=== PATIENT | female | born 1960 ===

== ENCOUNTER 2018-08-03 06:05 | Emergency (ER) | payer BC ==
[~2018-08-03] VITALS: Ht 165.1 cm; Wt 67.1 kg
[2018-08-03] MEDS ORDERED: MELO7.5 PO (06:53)
[2018-08-03] MEDS ORDERED: METPRE4DP PO (06:57)
== END 2018-08-03 07:04 | disposition home or self-care (01) ==
LOC: ER 06:05
DX: M54.42 Lumbago with sciatica, left side (principal); Z88.0 Allergy status to penicillin; Z79.1 Long term (current) use of non-steroidal anti-inflammatories (NSAID)
CPT/HCPCS: 99283

== ENCOUNTER 2019-05-06 11:37 | Inpatient (IN) | payer BC ==
[~2019-05-06 11:37] MED LIST: MELO7.5 PO; METPRE4DP PO
[2019-05-06] MEDS ORDERED: IBUP600 PO (11:45)
[2019-05-06 15:08] LABS: BASOPHILS ABSOLUTE AUTO 0.04 K/mm3 (0.00-0.23); BASOPHILS PERCENT AUTO 0 % (0-2); EOSINOPHILS ABSOLUTE AUTO 0.21 K/mm3 (0.00-0.68); EOSINOPHILS PERCENT AUTO 2 % (0-6); Hematocrit 41.8 % (33.0-51.0); Hemoglobin 13.8 g/dL (11.5-16.0); IMMATURE GRAN ABSOLUTE AUTO 0.03 K/mm3 (0.00-0.10); IMMATURE GRAN PERCENT AUTO 0 % (0-1); LYMPHOCYTES ABSOLUTE AUTO 1.52 K/mm3 (0.84-5.20); LYMPHOCYTES PERCENT AUTO 16 % (21-46); MONOCYTES ABSOLUTE AUTO 0.52 K/mm3 (0.16-1.47); MONOCYTES PERCENT AUTO 5 % (4-13); Mean Corpuscular HGB 29.7 pg (26.0-34.0); Mean Corpuscular Volume 90 fL (80-100); Mean Platelet Volume 9.3 fL (9.1-12.4); NEUTROPHILS ABSOLUTE AUTO 7.38 K/mm3 (1.96-9.15); NEUTROPHILS PERCENT AUTO 76 % (41-73); Platelet Count 239 K/mm3 (150-400); RDW Coefficient Variation 12.5 % (11.7-14.2); RDW Standard Deviation 41.1 fL (35.1-46.3); Red Blood Cell Count 4.65 M/mm3 (3.80-5.20)
[2019-05-06 15:29] LABS: Alanine Aminotransfer (ALT/SGP 25 U/L (12-78); Alk Phos 87 U/L (50-136); Anion Gap 5 mmol/L (6-16); Aspartate Aminotrans (AST/SGOT 15 U/L (12-37); Bilirubin, Total 0.8 mg/dL (0.1-1.0); Blood Urea Nitrogen 21 mg/dL (8-24); Bun/Creatinine Ratio 28.2 (12.0-20.0); CO2, Blood 29 mmol/L (21-32); Calcium, Blood 9.2 mg/dL (8.5-10.1); Chloride, Blood 107 mmol/L (98-108); Creatinine, Blood 0.75 mg/dL (0.40-1.00); Globulin, Blood 3.9 g/dL (2.2-4.0); Glomerular Filtration Rate >60 (60-); Glucose, Blood 92 mg/dL (70-99); Sodium, Blood 141 mmol/L (136-145); Total Protein, Blood 7.9 g/dL (6.4-8.2)
--- NOTE | 2019-05-06 17:30 | NUR ---
ARRIVAL TO UNIT PT ARRIVES FROM ER VIA W/C. TRANSERS SELF TO BED. PPP. ALERT AND ORIENTED. LUNGS CLEAR. STATES SHE RECIEVED A PAIN PILL IN ER AND IS COMFORTABLE.
[2019-05-07 04:44] LABS: BASOPHILS ABSOLUTE AUTO 0.05 K/mm3 (0.00-0.23); BASOPHILS PERCENT AUTO 1 % (0-2); EOSINOPHILS ABSOLUTE AUTO 0.32 K/mm3 (0.00-0.68); EOSINOPHILS PERCENT AUTO 4 % (0-6); Hematocrit 39.3 % (33.0-51.0); Hemoglobin 13.2 g/dL (11.5-16.0); IMMATURE GRAN ABSOLUTE AUTO 0.02 K/mm3 (0.00-0.10); IMMATURE GRAN PERCENT AUTO 0 % (0-1); LYMPHOCYTES ABSOLUTE AUTO 2.17 K/mm3 (0.84-5.20); LYMPHOCYTES PERCENT AUTO 24 % (21-46); MONOCYTES ABSOLUTE AUTO 0.74 K/mm3 (0.16-1.47); MONOCYTES PERCENT AUTO 8 % (4-13); Mean Corpuscular HGB 29.8 pg (26.0-34.0); Mean Corpuscular HGB Conc 33.6 g/dL (31.5-36.5); Mean Corpuscular Volume 89 fL (80-100); Mean Platelet Volume 9.6 fL (9.1-12.4); NEUTROPHILS ABSOLUTE AUTO 5.69 K/mm3 (1.96-9.15); NEUTROPHILS PERCENT AUTO 63 % (41-73); Platelet Count 238 K/mm3 (150-400); RDW Coefficient Variation 12.7 % (11.7-14.2); RDW Standard Deviation 41.1 fL (35.1-46.3); Red Blood Cell Count 4.43 M/mm3 (3.80-5.20); White Blood Cell Count 8.99 K/mm3 (4.00-11.30)
--- NOTE | 2019-05-07 04:52 | NUR ---
SHIFT SUMMARY PT A&O X4 T/O SHIFT. PPPX4. PAIN IN LLE MANAGED PER EMAR; EXT PWD. RA; VSS; PT DENIES SOB, CP, AND NAUSEA. PT NPO POST MIDNIGHT; ORAL SWABS AND ORAL CARE SUPPLIES AT BEDSIDE. SCD TO RLE. PT ABLE TO ADJUST POSITION INDEPENDENTLY. CALL LIGHT IN REACH; PT DEMONSTRATES USE. WCTM UNTIL REPORT TO DAY SHIFT RN.
[2019-05-07 04:59] LABS: Anion Gap 5 mmol/L (6-16); Blood Urea Nitrogen 26 mg/dL (8-24); CO2, Blood 28 mmol/L (21-32); Calcium, Blood 8.8 mg/dL (8.5-10.1); Chloride, Blood 108 mmol/L (98-108); Glomerular Filtration Rate >60 (60-); Glucose, Blood 100 mg/dL (70-99); Sodium, Blood 141 mmol/L (136-145)
--- NOTE | 2019-05-07 11:35 | NUR ---
PT OR OR VIA BED AT 1125 w/DR ZHU & BRENDEN MCKAY RN. PT APPEARS COMFORTABLE & RELAXED. SURGICAL PACK COMPLETE.
--- NOTE | 2019-05-07 14:37 | NUR ---
PT RETURNED FROM OR/RECOVERY S/P L HIP NAILING, AQUACEL CDI, ICE ON. DENIES PAIN AT THIS TIME. DENIES N&V, GUNNAR PO. TEDS, PAS' ON. RESTING COMFORTABLY. BEDSIDE.
--- NOTE | 2019-05-07 19:56 | NUR ---
SHIFT SUMMARY PT A&OX4, VSS, S/P L HIP PINNING, AQUACEL CDI, ICE ON. PAIN MANAGED PER EMAR. GUNNAR PO, DENIES N&V. AMB W/FWW AND SBA TO BR, IN ROOM, IN HALLWAY. VOIDING WELL. PHYSICAL THERAPY EVAL'D PT. REPORT GIVEN TO RODGER CHAIREZ.
--- NOTE | 2019-05-08 04:17 | NUR ---
SHIFT SUMMARY PT A&O X4 T/O SHIFT. POD#1 L HIP REPAIR; DRESSING TO L HIP CDI T/O SHIFT. PAIN MANAGED PER EMAR; ICE PACK TO L HIP TOLERATED. PT UP WITH FWW, GB AND SBA TO TOILET AND UP IN SOL X1. SCD'S AND KYAW'S TO BLE'S. ON RA; PT DENIES SOB, DIZZINESS, CP/P, AND NAUSEA T/O SHIFT. CALL LIGHT IN REACH; PT DEMONSTRATES USE WCTM UNTIL REPORT TO DAY SHIFT RN.
[2019-05-08 04:25] LABS: BASOPHILS ABSOLUTE AUTO 0.01 K/mm3 (0.00-0.23); BASOPHILS PERCENT AUTO 0 % (0-2); EOSINOPHILS PERCENT AUTO 0 % (0-6); Hematocrit 37.8 % (33.0-51.0); Hemoglobin 12.7 g/dL (11.5-16.0); IMMATURE GRAN ABSOLUTE AUTO 0.05 K/mm3 (0.00-0.10); IMMATURE GRAN PERCENT AUTO 0 % (0-1); LYMPHOCYTES ABSOLUTE AUTO 0.94 K/mm3 (0.84-5.20); LYMPHOCYTES PERCENT AUTO 7 % (21-46); MONOCYTES PERCENT AUTO 5 % (4-13); Mean Corpuscular HGB Conc 33.6 g/dL (31.5-36.5); Mean Corpuscular Volume 89 fL (80-100); Mean Platelet Volume 9.2 fL (9.1-12.4); NEUTROPHILS ABSOLUTE AUTO 12.45 K/mm3 (1.96-9.15); NEUTROPHILS PERCENT AUTO 88 % (41-73); Platelet Count 260 K/mm3 (150-400); RDW Coefficient Variation 12.3 % (11.7-14.2); Red Blood Cell Count 4.24 M/mm3 (3.80-5.20); White Blood Cell Count 14.15 K/mm3 (4.00-11.30)
[2019-05-08 04:42] LABS: Anion Gap 5 mmol/L (6-16); Blood Urea Nitrogen 28 mg/dL (8-24); Bun/Creatinine Ratio 37.6 (12.0-20.0); CO2, Blood 29 mmol/L (21-32); Calcium, Blood 8.9 mg/dL (8.5-10.1); Chloride, Blood 104 mmol/L (98-108); Creatinine, Blood 0.75 mg/dL (0.40-1.00); Glomerular Filtration Rate >60 (60-); Glucose, Blood 121 mg/dL (70-99); Potassium, Blood 4.2 mmol/L (3.5-5.5); Sodium, Blood 138 mmol/L (136-145)
[2019-05-08] MEDS ORDERED: ASPI81CH PO (08:41)
[2019-05-08] MEDS ORDERED: Percocet 5-3251 EACH PO (08:42)
--- NOTE | 2019-05-08 12:53 | NUR ---
DISCHARGE SUMMARY PT A&OX4, VSS, LEFT FLOOR VIA WC WITH RN, TO GO HOME WITH , WITH ALL PERSONAL POSSESSIONS INCLUDING 2 AQUACEL DRESSINGS, 1 NARC SCRIPT W/DISCHARGE PACKET. DISCHARGE INSTRUCTIONS PROVIDED. PT REP UNDERSTANDING THOSE INSTRUCTIONS INCLUDING CHANGING AQUACEL DRESSING, FU WITH SURGEON 2 WKS, ASA BID X 30 DAYS, PAIN MANAGEMENT, SHORT FREQ AMBULATION W/FWW, REST/ICE/ELEVATE. IV DC'D.
== END 2019-05-08 11:16 | disposition home or self-care (01) | DRG 482 ==
LOC: ER 11:37 → SURS 15:45
PROVIDERS: Orthopaedic Surgery; Physician Assistant; ADMIT Student in an Organized Health Care Education/Training Program
PROC: 0QSC34Z Reposition Left Lower Femur with Internal Fixation Device, Percutaneous Approach (ICD-10-PCS; principal; 2019-05-07 09:30)
DX: S72.002A Fracture of unspecified part of neck of left femur, initial encounter for closed fracture (principal); W18.30XA Fall on same level, unspecified, initial encounter
CPT/HCPCS: 36415; 72170; 73502; 80048; 80053; 85025; 86900; 86901; 93005; 93010; 97110; 97116; 97162; 99284-25; A9270-GY; C1713; C1769; J1100; J1650; J1885; J2250; J2405; J2704; J3010; J7120

== ENCOUNTER → 2019-07-18 | Outpatient (CLI) | payer BC ==
[~2019-07-18] MED LIST changes: +ASPI81CH PO; +IBUP600 PO; +Percocet 5-3251 EACH PO
== END ==
LOC: LAB SHORT 10:46 → LAB 10:46
PROVIDERS: Nurse Practitioner Family
DX: Z01.419 Encounter for gynecological examination (general) (routine) without abnormal findings (principal)
CPT/HCPCS: G0145